=== PATIENT | male | born 1955 | race Caucasian/White ===

== ENCOUNTER 2019-08-20 06:09 | Day surgery (SDC) | payer OTHER ==
[2019-08-19 09:23] VITALS: BMI 29.4
[2019-08-20] MEDS ORDERED: PROPOFOL 20 ML ONE ×2 (07:36)
[2019-08-20] MEDS ORDERED: SUCCINYLCHOLINE CHLORIDE 200 MG/10 ML SYRINGE ONE (07:36)
[2019-08-20] MEDS ORDERED: MIDAZOLAM HCL 2 MG/2 ML SINGLE DOSE VIAL ONE (07:38)
[2019-08-20] MEDS ORDERED: ceFAZolin SODIUM 1 GM VIAL IVPB ONE (07:54)
[2019-08-20] MEDS ORDERED: oxyCODONE HCL 5 MG TABLET PO PRN (08:25)
--- NOTE | 2019-08-20 08:25 | OP ---
Operative Note - Note: Operative Date: 08/20/19 Pre-Operative Diagnosis: bladder tumor Operation: TURBT Findings: post wall tumor Post-Operative Diagnosis: Same as Pre-op Surgeon: Jose Workman Anesthesia: General Specimens Removed: BT Estimated Blood Loss (mls): 5 Operative Report Dictated: Yes
[2019-08-20] MEDS ORDERED: DEXTROSE 5%-0.45% SALINE 1,000 ML IV SCH (08:30)
[2019-08-20] MEDS ORDERED: ONDANSETRON 4 MG/2 ML VIAL IVPUSH PRN (08:35)
[2019-08-20] MEDS ORDERED: LACTATED RINGERS SOLUTION 1,000 ML IV SCH (08:45)
[2019-08-20 09:28] VITALS: TEMP 97.4
--- NOTE | 2019-08-20 10:46 | OP ---
DATE OF OPERATION: 08/20/2019 PREOPERATIVE DIAGNOSIS: Bladder tumor. POSTOPERATIVE DIAGNOSIS: Bladder tumor. PROCEDURE: Transurethral resection of bladder tumor. SURGEON: Cristian Rivera MD INDICATION: Patient is a 64-year-old male noted to have an approximately 3-cm bladder tumor on imaging then confirmed with cystoscopy. He was taken to the OR for a transurethral resection. Risks, benefits, and treatment discussed including risks of bleeding, infection, bladder perforation, potential injury to adjacent organs, potential need for additional procedures, known history of bladder cancer recurrence, potential urethral stricture formation, hematuria, urinary retention. DESCRIPTION OF PROCEDURE: After informed consent was obtained, patient taken to OR, placed supine on the operating room table. After cardiac monitoring was administered and general anesthesia was established, she was prepped and draped in the dorsal lithotomy position. The 26 sheath resectoscope was inserted into urethra after meatal dilation to accommodate the 26-[place]i scope. Anterior urethra was normal. there was 4 cm visually occlusive and a large median bar. Bladder was visualized. Large papillary tumor was noted in the posterior wall of the bladder. This was resected in its entirety using bipolar . There was evidence of muscle taken with the specimen because the muscle fibers in the bladder were identified after resection. With all gross tumor removed and sent to Pathology for analysis, the patient's tumor was cauterized. No other tumors noted. Bilateral ureteral orifices were seen in their normal anatomic position. Resectoscope was then removed, and an 18-[place] was then placed to straight drainage. [place]-tinged urine was retrieved. Patient was awoken from anesthesia and transferred to recovery room in stable condition. There were no complications. Estimated blood loss was 5 mL. CRISTIAN RIVERA M.D. [id number]
[2019-08-20 10:56] VITALS: PULSE 59
[2019-08-20 11:54] VITALS: BP 130/65
--- NOTE | 2019-08-22 15:35 | PATH ---
Surgical Pathology Report Patient Name: BA PERDUE [facility]. Rec. #: [id number] /Age/Gender: 1955 (Age: 64) / M Account: [id number] Location: [facility] SURGICAL Taken: 08/20/2019 Received: 08/20/2019 Reported: 08/22/2019 Physicians: Jose Workman M.D. Specimen(s) Received BLADDER TUMOR Clinical History Bladder cancer Final Diagnosis BLADDER TUMOR, TRANSURETHRAL RESECTION OF BLADDER TUMOR: HIGH GRADE PAPILLARY UROTHELIAL CARCINOMA, NON-INVASIVE. MUSCULARIS PROPRIA IDENTIFIED. NO FLAT CARCINOMA IN SITU (CIS) IDENTIFIED. Comment: Findings discussed with Dr. Martinez. Electronically Signed Rashida Barone M.D. Gross Description Received in formalin labeled "bladder tumor," is a 2.7 x 2.5 x 0.4 cm aggregate of marx pink soft tissue fragments. The formalin is filtered and the specimen is entirely submitted in 2 cassettes. /08/20/2019 saudi08/20/2019
== END 2019-08-20 12:07 | disposition home or self-care (01) ==
LOC: JASU-SURG 06:09
PROVIDERS: ATTEND Urology
PROC: 0T5B8ZZ Destruction of Bladder, Via Natural or Artificial Opening Endoscopic (ICD-10-PCS; principal; 2019-08-20 07:30)
DX: C67.9 Malignant neoplasm of bladder, unspecified (principal)
CPT/HCPCS: 94760

== ENCOUNTER 2020-09-24 04:12 | Day surgery (SDC) | payer OTHER ==
[2020-09-21 17:08] VITALS: BMI 27.8
[2020-09-24] MEDS ORDERED: MIDAZOLAM HCL 2 MG/2 ML SINGLE DOSE VIAL ONE (07:31)
[2020-09-24] MEDS ORDERED: SUCCINYLCHOLINE CHLORIDE 200 MG/10 ML SYRINGE ONE (07:31)
[2020-09-24] MEDS ORDERED: PROPOFOL 20 ML ONE ×2 (07:31→09:00)
[2020-09-24] MEDS ORDERED: EPHEDRINE SULFATE/0.9% NACL/PF 50 MG/10 ML SYRINGE NR ONE (08:08)
[2020-09-24] MEDS ORDERED: oxyCODONE HCL 5 MG TABLET PO PRN ×2 (09:32→11:09)
[2020-09-24] MEDS ORDERED: DEXTROSE 5%-0.45% SALINE 1,000 ML IV SCH (09:45)
[2020-09-24] MEDS ORDERED: ONDANSETRON 4 MG/2 ML VIAL IVPUSH PRN (11:09)
[2020-09-24] MEDS ORDERED: LACTATED RINGERS SOLUTION 1,000 ML IV SCH (11:15)
[2020-09-24 14:03] VITALS: BP 134/70; PULSE 60; TEMP 97
== END 2020-09-24 14:03 | disposition home or self-care (01) ==
LOC: JASU-SURG 04:12
PROVIDERS: ATTEND Urology
PROC: 0VT08ZZ Resection of Prostate, Via Natural or Artificial Opening Endoscopic (ICD-10-PCS; 2020-09-24)
PROC: 0T5B8ZZ Destruction of Bladder, Via Natural or Artificial Opening Endoscopic (ICD-10-PCS; principal; 2020-09-24 07:30)
PROC: 0T5B8ZZ Destruction of Bladder, Via Natural or Artificial Opening Endoscopic (ICD-10-PCS; 2020-09-24 07:30)
DX: C67.9 Malignant neoplasm of bladder, unspecified (principal); C61 Malignant neoplasm of prostate; N40.1 Benign prostatic hyperplasia with lower urinary tract symptoms; R33.8 Other retention of urine
CPT/HCPCS: 94760